=== PATIENT | male | born 1995 | race Caucasian/White ===

== ENCOUNTER 2023-02-05 12:20 | Outpatient (CLI) | payer OTHER, SELFPAY ==
--- NOTE | 2023-02-05 | ECG_ITS ---
Measurements Intervals [place] Rate: 75 P: 32 UT: 153 QRS: 64 QRSD: 106 T: 22 QT: 370 QTc: 415 Interpretive Statements SINUS RHYTHM WITH MARKED SINUS ARRHYTHMIA BORDERLINE ECG NO PREVIOUS ECG AVAILABLE FOR COMPARISON Electronically Signed On 02-05-2023 12:47:20 CDT by Abdirizak Lopez D.O.
== END 2023-02-05 12:21 | disposition home or self-care (01) ==
PROVIDERS: PCP Family Medicine Sports Medicine; Visit Provider Family Medicine Sports Medicine
DX: R42 Dizziness and giddiness (principal)
CPT/HCPCS: 93005

== ENCOUNTER 2024-10-24 11:06 | Emergency (ER) | payer OTHER, SELFPAY ==
--- NOTE | 2024-10-24 11:06 | ED.WOUNDLAC ---
HPI - Wound/Laceration General Chief Complaint: Wound/Laceration Stated Complaint: Cut Wrist Time Seen by Provider: 10/24/24 11:06 Source: patient Mode of arrival: ambulatory Limitations: no limitations History of Present Illness HPI narrative: Viraj is a 29-year-old male patient presenting to the clinic today with complaints of a cut to his left wrist. He reports he was working on a car and cut the wrist on a fender. Tetanus is up-to-date within the last 5 years. Bleeding is controlled. Sensation circulation and motion are within normal limits of the left hand. Denies any numbness or tingling. Tendon is exposed and intact in the left volar wrist. Related Data Allergies Allergy/AdvReac Type Severity Reaction Status Date / Time No Known Allergies Allergy Verified 10/24/24 11:21 Review of Systems Review of Systems: Pertinent positives per HPI. Patient denies any fever, chills, rash, headache, visual changes, dizziness, cough, runny nose, sore throat, shortness of breath, chest pain, palpitations, nausea, vomiting, diarrhea, constipation, abdominal pain, or any urinary issues. PMFSH Comments At the time of my signature, I reviewed and agree with the nursing past medical, surgical, social, and family history. There is no relevant family history pertinent to the patient complaint. Exam Narrative: General: Well-developed, well nourished, in no apparent distress Head: Normocephalic, atraumatic. Cardio: Regular rate and rhythm, s1 and s2 normal, no murmur appreciated. Resp: Clear to auscultation bilaterally, no rhonchi, rales, wheezing or rubs. Integumentary: Geary, warm, and dry, 3 cm gaping laceration to the left volar wrist with tendon exposure-tendon intact Course Course Emergency Course: Portions of this record may have been created with voice recognition software. Level of Care: Express Care Visit Vital Signs Vital signs: Vital Signs Oxygen Delivery Room Air 10/24/24 11:15 Temperature 36.2 C L 10/24/24 11:16 Pulse Rate 75 10/24/24 11:16 Respiratory Rate 18 10/24/24 11:16 Blood Pressure 124/82 10/24/24 11:16 Pulse Oximetry 100 10/24/24 11:16 Oxygen Delivery Room Air 10/24/24 11:16 Vital signs reviewed Procedures Laceration Laceration 1: Date: 10/24/24 Site: upper extremity (Wrist) Side (If applicable): left Size (cm): 3 Description: linear Depth: simple, single layer Local Anesthetic: lidocaine 1% Amount of anesthesia used (mL): 2 Pre-repair: wound explored, irrigated and irrigated extensively ====== Skin Level ====== Skin layer closed with: nylon Size (cm): 5-0 Number of sutures: 6 Technique: simple, interrupted ====== Subcutaneous Layer ====== ====== Muscle Layer ====== ====== Tendon Layer ====== Dressing: Verbal consent obtained for laceration repair. Risk and benefits explained and patient voiced understanding. Area was cleansed with Techni care and a 25 gauge needle was then used to instill (2) ml of 1% lidocaine without epi into the wound edges. Area was prepped and draped using sterile technique. A 5-0 suture on a p needle was used to place (6) interrupted sutures bringing the wound edges together- well approximated. Patient tolerated procedure well. Sterile dressing applied. MDM - Wound/Laceration MDM Narrative Medical decision making narrative: At the time of visit patient is resting comfortably on the exam table. Patient appears to be nontoxic. Procedures: Laceration repair was performed in the clinic today. Six interrupted sutures were placed for wound closure. Tendon intact without entrapment after laceration repair. Triple antibiotic ointment and Telfa was placed over the wound and secured with Coban. Patient tolerated well. Plan: Patient has laceration to the left volar wrist. Laceration repair was performed. Sutures out 7 days. Supportive measures were discussed with the patient and they voiced understanding discharge instructions and agrees to treatment plan. Return precautions reviewed Differential Diagnosis Differential diagnosis: Likely laceration, abscess, abrasion and avulsion of skin Discharge Plan Discharge Clinical Impression: Laceration of left wrist Qualifiers: Encounter type: initial encounter Qualified Code(s): S61.512A - Laceration without foreign body of left wrist, initial encounter Patient Disposition: Home, Self-Care Condition: Stable Instructions: Antibiotic Form, Laceration (ED) Additional Instructions: Leave bandage on for 24 hours then may remove and apply band aide covering as needed. Keep wound clean and dry Skin sutures out in 7 days. Take cephalexin as prescribed Watch for signs and symptoms of infection- redness, streaking, swelling, purulent discharge, or increase in pain. Follow up with your PCP for suture removal or return to the Express care. Patient Language: Tristanian Prescriptions: New cephalexin 500 mg tablet 500 mg PO Q12H 7 Days Qty: 14 0RF Follow-up/Referrals: UNKNOWN,DOCTOR [Non-Staff] - Time of Disposition: 11:48 Quality NIHSS Nursing Documentation ED NIHSS nursing documentation: reviewed/agree
[2024-10-24 11:16] VITALS: BP 124/82; PULSE 75; RESP 18; TEMP 36.2; O2SAT 100
[2024-10-24] MEDS: LIDOCAINE 1% LOCAL INJ 2 ML AMPUL 4 ML INFILTRATE (11:21)
== END 2024-10-24 11:52 | disposition home or self-care (01) ==
PROVIDERS: Emergency Provider Nurse Practitioner Family
DX: S61.512A Laceration without foreign body of left wrist, initial encounter (principal); W45.8XXA Other foreign body or object entering through skin, initial encounter
CPT/HCPCS: 12002; 99213; G0463; J2003

== ENCOUNTER 2024-11-01 12:00 | Emergency (ER) | payer OTHER, SELFPAY ==
[2024-11-01 12:12] VITALS: BP 127/86; PULSE 76; RESP 16; TEMP 36.3; O2SAT 99
--- NOTE | 2024-11-01 12:40 | ED_ITS ---
HPI - Skin/Abscess/Foreign Bdy General Chief complaint: Skin/Abscess/Foreign Body Stated complaint: SUTURE REMOVAL Time Seen by Provider: 11/01/24 12:04 Source: patient and RN notes reviewed Mode of arrival: ambulatory Limitations: no limitations History of Present Illness HPI narrative: 29-year-old male presents to the [facility] for suture removal. Patient had 6 sutures placed approximately 1 week ago after lacerating his left anterior wrist with a stretch box tender at work. He did not have any tendon or nerve injuries from his injury. Patient was placed on prophylactic Keflex for a infection prevention. He denies any redness, swelling, and abnormal drainage from the wound He denies any numbness, tingling, or any concerns related to the injury or in his left hand. Patient able is able to make a fist and has full sensation to his hand and fingers distal to his injury. Related Data Allergies Allergy/AdvReac Type Severity Reaction Status Date / Time No Known Allergies Allergy Verified 10/24/24 11:21 Review of Systems Review of Systems: CONSTITUTIONAL: Denies fever, chills, or sweats. EYES: Denies visual changes, redness, or discharge. ENT: Denies rhinorrhea, congestion, sore throat, or otalgia. CARDIOVASCULAR: Denies chest pain, palpitations, or edema. RESPIRATORY: Denies cough or dyspnea. GASTROINTESTINAL: Denies abdominal pain, nausea, vomiting, or diarrhea. GENITOURINARY: Denies dysuria or hematuria. SKIN: Positive for wound MUSCULOSKELETAL: Denies back pain, joint pain, or myalgia. NEUROLOGIC: Denies headache, numbness, tingling, or weakness. PSYCHIATRIC: Denies anxiety or depression. All other systems reviewed are negative, except as documented in HPI. PMFSH Comments At the time of my signature, I reviewed and agree with the nursing past medical, surgical, social, and family history. There is no relevant family history pertinent to the patient complaint. Exam Narrative: GENERAL: Well-appearing, well-nourished, and in no acute distress. HEAD: Normocephalic, atraumatic. EYES: PERRLA, conjunctivae clear NECK: Supple. CHEST: Speaks in full sentences. No respiratory distress. HEART: Regular rate and rhythm. Normal and equal peripheral pulses. EXTREMITIES: Left wrist/hand: He is able to make a fist, and okay sign, and stop sign. Thumb opposition test is normal. Capillary refill is less than 2 seconds, normal sensation, distal pulses intact, hand and wrist are warm, dry, and pink. SKIN: Left wrist: 6 sutures are present to the laceration on the left anterior wrist. There is no erythema, swelling, tenderness, or discharge from the wound. NEURO: Alert and oriented x3. PSYCH: Normal mood and affect Course Course Level of Care: Express Care Visit Vital Signs Vital signs: Vital Signs Temperature 97.3 F L 11/01/24 12:12 Pulse Rate 76 11/01/24 12:12 Respiratory Rate 16 11/01/24 12:12 Blood Pressure 127/86 11/01/24 12:12 Pulse Oximetry 99 11/01/24 12:12 Temperature 97.3 F L 11/01/24 12:12 Pulse Rate 76 11/01/24 12:12 Respiratory Rate 16 11/01/24 12:12 Blood Pressure 127/86 11/01/24 12:12 Pulse Oximetry 99 11/01/24 12:12 Reviewed Procedures Other Procedure Procedure 1: Other Procedure: Six sutures were removed from the left wrist laceration. Wound is healing well, no signs of infection, Steri-Strips were applied after sutures removed for better wound support. Patient tolerated procedure well MDM - Skin/Abscess/Foreign Bdy MDM Narrative Medical decision making narrative: Left wrist laceration is healing well. There is no signs of infection, patient completed a course of antibiotics. Physical exam is negative for any signs of tendon or nerve injury. Six sutures were removed from the wound, patient tolerated procedure well. Discussed physical exam findings. Advised supportive measures and signs/symptoms to go to the ER. Pt is appropriate for outpt treatment and f/u. Differential Diagnosis Differential diagnosis: Likely other (Suture removal, laceration, cellulitis) Critical Care Time Critical Care Time Critical Care Time: No Discharge Plan Discharge Clinical Impression: Encounter for removal of sutures Patient Disposition: Hospice - Home Condition: Stable Instructions: Laceration (DC) Additional Instructions: Your sutures were removed today. Steri-Strips were applied to your laceration for reinforcement of the wound. These will roll off on their own. Keep the wound covered and dry. Wash the site daily with mild soap and water. Avoid soaking in baths, no Jacuzzi, hot tub, pools, lakes, or any other dirty water until the wound has healed. Look for signs of infection including redness and swelling to the site, or abnormal discharge. Follow-up with primary care provider in 1 week. Patient Language: Slovenian Prescriptions: No Action cephalexin 500 mg tablet 500 mg PO Q12H 7 Days Qty: 14 0RF Follow-up/Referrals: Namrata,Merlin Alvarez MD [Primary Care Provider] - Time of Disposition: 12:41
== END 2024-11-01 12:47 | disposition home or self-care (01) ==
PROVIDERS: PCP Family Medicine
DX: S61.512D Laceration without foreign body of left wrist, subsequent encounter (principal); W26.8XXD Contact with other sharp object(s), not elsewhere classified, subsequent encounter
CPT/HCPCS: 99211; G0463